=== PATIENT | male | born 1945 | race Asian ===

== ENCOUNTER 2020-01-30 16:14 | Emergency (ER) | payer MEDICARE ==
[~2020-01-30] VITALS: Ht 157.5 cm; Wt 63.6 kg
[2020-01-30] MEDS ORDERED: LOSA25TA21 PO (16:27)
[2020-01-30] MEDS ORDERED: ATOR10TA84 PO (16:27)
[2020-01-30] MEDS ORDERED: ALLO-44 PO (16:27)
[2020-01-30] MEDS ORDERED: AMLO-257 PO (16:27)
[2020-01-30] MEDS ORDERED: HYDR10TA31 PO (16:27)
[2020-01-30] MEDS ORDERED: METF-960 PO (16:27)
[2020-01-30 17:44] LABS: BASOPHILS % (AUTO) 0.4 % (0.0-2.0); EOSINOPHILS % (AUTO) 0.9 % (1.0-6.0); HEMATOCRIT 39.5 % (41-53); HEMOGLOBIN 13.4 g/dL (13.5-17.5); LYMPHOCYTES % (AUTO) 26.5 % (22.0-44.0); MEAN CORPUSCULAR HEMOGLOBIN 31.3 pg (26.0-34.0); MEAN CORPUSCULAR HGB CONC 33.9 G/dL (31.0-37.0); MEAN CORPUSCULAR VOLUME 92 fL (80-100); MONOCYTES # (AUTO) 0.4 K/uL (0.1-1.0); MONOCYTES % (AUTO) 9.8 % (2.0-9.0); NEUTROPHILS # (AUTO) 2.4 K/uL (1.8-7.7); NEUTROPHILS % (AUTO) 62.4 % (40.0-70.0); PLATELET COUNT (AUTO) 235 K/uL (150-450); RED BLOOD CELL COUNT(AUTO) 4.28 MIL/uL (4.50-5.90); RED CELL DISTRIBUTION WIDTH 14.9 % (11.5-14.5)
[2020-01-30 17:48] LABS: ANION GAP 12 mmol/L (8-16); CALCIUM, TOTAL 9.5 mg/dL (8.8-10.5); CARBON DIOXIDE 21 mmol/L (22-29); CHLORIDE 101 mmol/L (98-107); CREATININE 1.14 mg/dL (0.60-1.30); GLOMERULAR FILTR. RATE CALC > 60 mL/min (>60); GLUCOSE,RANDOM 146 mg/dL (70-110); POTASSIUM 4.4 mmol/L (3.5-5.1); SODIUM SERUM 134 mmol/L (136-145); UREA NITROGEN, BLOOD 23 mg/dL (7-18)
[2020-01-30] MEDS ORDERED: ACETAMINOPHEN 325 MG TABLET PO ONE (18:00)
[2020-01-30 18:13] LABS: ALANINE AMINOTRANSFERASE 60 U/L (12-78); ALBUMIN 4.3 g/dL (3.4-5.0); ALKALINE PHOSPHATASE 51 U/L (46-116); ASPARTATE AMINOTRANSFERASE 31 U/L (15-37); BILIRUBIN,TOTAL 0.7 mg/dL (0.1-1.0); CREATINE KINASE, TOTAL ONLY 491 U/L (39-308); TOTAL PROTEIN, SERUM 7.6 g/dL (6.4-8.2)
[2020-01-30 18:17] LABS: B-TYPE NATRIURETIC PEPTIDE 28 pg/mL (0-100)
[2020-01-30] MEDS ORDERED: AmLODIPine BESYLATE 5 MG TABLET PO ONE (18:45)
[2020-01-30] MEDS ORDERED: CloNIDine HCL 0.2 MG TABLET PO ONE (19:30)
[2020-01-30] MEDS ORDERED: KETOROLAC TROMETHAMINE 30 MG/ML VIAL IVP ONE (19:45)
[2020-01-30 20:41] VITALS: BP 157/63
== END 2020-01-30 22:02 | disposition home or self-care (01) ==
LOC: EMS 16:14
DX: I10 Essential (primary) hypertension (principal); R51.9 Headache, unspecified; M10.9 Gout, unspecified; E78.00 Pure hypercholesterolemia, unspecified; E11.9 Type 2 diabetes mellitus without complications; Z87.891 Personal history of nicotine dependence
CPT/HCPCS: 36415; 70450; 71045; 80053; 82550; 82962; 83880; 84484; 85025; 93005; 96374; 99285; J1885

== ENCOUNTER 2020-01-31 21:45 | Emergency (ER) | payer MEDICARE ==
[~2020-01-31] VITALS: Ht 157.5 cm; Wt 63.6 kg
[~2020-01-31 21:45] MED LIST: ALLO-44 PO; AMLO-257 PO; ATOR10TA84 PO; HYDR10TA31 PO; LOSA25TA21 PO; METF-960 PO
[2020-02-01 00:38] LABS: APPEARANCE,URINE CLEAR (CLEAR); BILIRUBIN,URINE NEGATIVE (NEGATIVE); GLUCOSE, URINE (UA) NEGATIVE (NEGATIVE); KETONES,URINE NEGATIVE (NEGATIVE); LEUKOCYTE ESTERASE ,URINE NEGATIVE (NEGATIVE); NITRATE,URINE NEGATIVE (NEGATIVE); OCCULT BLOOD,URINE NEGATIVE (NEGATIVE); PH,URINE 6.5 (5.0-8.0); PROTEIN,URINE TRACE (NEGATIVE); UROBILINOGEN,URINE 0.2 mg/dL (<=1.0)
[2020-02-01 00:50] LABS: BACTERIA,URINE None Seen /HPF (None Seen); RBC,URINE None Seen /HPF (0-2); SQUAMOUS EPITHELIAL CELL,UR Rare /LPF (None Seen); WBC,URINE None Seen /HPF (0-5)
[2020-02-01 01:18] VITALS: BP 176/86
== END 2020-02-01 01:38 | disposition home or self-care (01) ==
LOC: EMS 21:49
DX: I10 Essential (primary) hypertension (principal); R11.2 Nausea with vomiting, unspecified; E11.9 Type 2 diabetes mellitus without complications; E78.00 Pure hypercholesterolemia, unspecified; Z87.891 Personal history of nicotine dependence; Z88.6 Allergy status to analgesic agent; Z79.84 Long term (current) use of oral hypoglycemic drugs

== ENCOUNTER 2020-06-06 18:00 | Emergency (ER) | payer MEDICARE ==
[~2020-06-06] VITALS: Ht 157.5 cm; Wt 63.6 kg
[~2020-06-06 18:00] MED LIST changes: -ALLO-44 PO; +ALLO100T2 PO
[2020-06-06] MEDS ORDERED: SPIR25 PO (18:10)
[2020-06-06] MEDS ORDERED: OLME20TA10 PO (18:10)
[2020-06-06] MEDS ORDERED: AMLO-258 PO (18:10)
[2020-06-06] MEDS ORDERED: METF-960 PO (18:10)
[2020-06-06 18:15] LABS: GLUCOSE,POINT OF CARE 141 MG/DL (70-110)
[2020-06-06 19:00] LABS: BASOPHILS % (AUTO) 0.3 % (0.0-2.0); EOSINOPHILS % (AUTO) 1.9 % (1.0-6.0); HEMATOCRIT 32.5 % (41-53); LYMPHOCYTES # (AUTO) 0.7 K/uL (1.0-4.8); LYMPHOCYTES % (AUTO) 28.2 % (22.0-44.0); MEAN CORPUSCULAR HEMOGLOBIN 30.3 pg (26.0-34.0); MEAN CORPUSCULAR HGB CONC 33.8 G/dL (31.0-37.0); MEAN CORPUSCULAR VOLUME 90 fL (80-100); MONOCYTES # (AUTO) 0.3 K/uL (0.1-1.0); MONOCYTES % (AUTO) 10.4 % (2.0-9.0); NEUTROPHILS # (AUTO) 1.5 K/uL (1.8-7.7); NEUTROPHILS % (AUTO) 59.2 % (40.0-70.0); PLATELET COUNT (AUTO) 156 K/uL (150-450); RED BLOOD CELL COUNT(AUTO) 3.62 MIL/uL (4.50-5.90); RED CELL DISTRIBUTION WIDTH 14.2 % (11.5-14.5)
[2020-06-06 19:11] LABS: ANION GAP 12 mmol/L (8-16); CARBON DIOXIDE 23 mmol/L (22-29); CHLORIDE 95 mmol/L (98-107); CREATININE 1.12 mg/dL (0.60-1.30); GLUCOSE,RANDOM 136 mg/dL (70-110); POTASSIUM 4.1 mmol/L (3.5-5.1); SODIUM SERUM 130 mmol/L (136-145); UREA NITROGEN, BLOOD 18 mg/dL (7-18)
[2020-06-06 19:12] LABS: GLOMERULAR FILTR. RATE CALC > 60 mL/min (>60)
[2020-06-06 19:16] LABS: ALANINE AMINOTRANSFERASE 40 U/L (12-78); ALBUMIN 3.9 g/dL (3.4-5.0); ALKALINE PHOSPHATASE 50 U/L (46-116); ASPARTATE AMINOTRANSFERASE 25 U/L (15-37); BILIRUBIN,TOTAL 0.6 mg/dL (0.1-1.0); TOTAL PROTEIN, SERUM 7.2 g/dL (6.4-8.2)
[2020-06-06] MEDS ORDERED: SODIUM CHLORIDE 0.9% 1,000 ML IV ONE (19:30)
[2020-06-06] MEDS ORDERED: TAMS-13 PO (19:35)
[2020-06-06] MEDS ORDERED: ALLO-45 PO (19:35)
[2020-06-06] MEDS ORDERED: LOSA50TA37 PO (19:35)
[2020-06-06 21:30] VITALS: BP 141/78
== END 2020-06-06 22:21 | disposition home or self-care (01) ==
LOC: EMS 18:00
DX: E87.1 Hypo-osmolality and hyponatremia (principal); E11.9 Type 2 diabetes mellitus without complications; E78.00 Pure hypercholesterolemia, unspecified; I10 Essential (primary) hypertension; Z87.891 Personal history of nicotine dependence; Z88.6 Allergy status to analgesic agent; Z79.84 Long term (current) use of oral hypoglycemic drugs
CPT/HCPCS: 93005; 96360; 99284; 36415-L1; 36415-TC

== ENCOUNTER 2020-09-21 00:48 | Emergency (ER) | payer MEDICARE ==
[~2020-09-21] VITALS: Ht 157.5 cm; Wt 63.6 kg
[~2020-09-21 00:48] MED LIST changes: +ALLO-45 PO; -ALLO100T2 PO; -AMLO-257 PO; +AMLO-258 PO; -HYDR10TA31 PO; -LOSA25TA21 PO; +LOSA50TA37 PO; +OLME20TA10 PO; +SPIR-37 PO; +TAMS-13 PO
[2020-09-21 02:44] LABS: APPEARANCE,URINE CLEAR (CLEAR); BILIRUBIN,URINE NEGATIVE (NEGATIVE); GLUCOSE, URINE (UA) NEGATIVE (NEGATIVE); KETONES,URINE NEGATIVE (NEGATIVE); LEUKOCYTE ESTERASE ,URINE NEGATIVE (NEGATIVE); NITRATE,URINE NEGATIVE (NEGATIVE); OCCULT BLOOD,URINE SMALL (NEGATIVE); PROTEIN,URINE TRACE (NEGATIVE); UROBILINOGEN,URINE 0.2 mg/dL (<=1.0)
[2020-09-21 02:56] LABS: BACTERIA,URINE None Seen /HPF (None Seen); RBC,URINE 0-2 /HPF (0-2); WBC,URINE 0-2 /HPF (0-5)
[2020-09-21 02:57] LABS: TRANSITIONAL EPI CELLS,URINE Rare /LPF (None Seen)
[2020-09-21 03:24] VITALS: BP 121/69
== END 2020-09-21 03:51 | disposition home or self-care (01) ==
LOC: EMS 00:48
DX: R33.9 Retention of urine, unspecified (principal); E11.9 Type 2 diabetes mellitus without complications; E78.00 Pure hypercholesterolemia, unspecified; I10 Essential (primary) hypertension; Z88.6 Allergy status to analgesic agent; Z87.891 Personal history of nicotine dependence; Z79.84 Long term (current) use of oral hypoglycemic drugs
CPT/HCPCS: 51702; 81001; 99283; 99284

== ENCOUNTER 2024-04-21 01:48 | Emergency (ER) | payer MEDICARE ==
[~2024-04-21] VITALS: Ht 157.5 cm; Wt 60.9 kg
[~2024-04-21 01:48] MED LIST changes: +ATOR10TA PO; -ATOR10TA84 PO; +LOSA-382 PO; -LOSA50TA37 PO; +METF-1211 PO; -METF-960 PO; -OLME20TA10 PO; +OLME20TA73 PO; -TAMS-13 PO; +TAMS0.4C94 PO
[2024-04-21 01:58] VITALS: TEMP 97.9
[2024-04-21 02:18] LABS: BASOPHILS % (AUTO) 0.5 % (0.0-2.0); EOSINOPHILS % (AUTO) 4.2 % (1.0-6.0); HEMATOCRIT 29.3 % (41-53); LYMPHOCYTES # (AUTO) 0.8 K/uL (1.0-4.8); LYMPHOCYTES % (AUTO) 40.3 % (22.0-44.0); MEAN CORPUSCULAR HEMOGLOBIN 32.4 pg (26.0-34.0); MEAN CORPUSCULAR HGB CONC 34.2 G/dL (31.0-37.0); MEAN CORPUSCULAR VOLUME 95 fL (80-100); MONOCYTES # (AUTO) 0.2 K/uL (0.1-1.0); MONOCYTES % (AUTO) 7.7 % (2.0-9.0); NEUTROPHILS # (AUTO) 0.9 K/uL (1.8-7.7); NEUTROPHILS % (AUTO) 47.3 % (40.0-70.0); PLATELET COUNT (AUTO) 173 K/uL (150-450); RED CELL DISTRIBUTION WIDTH 16.4 % (11.5-14.5)
[2024-04-21 02:26] LABS: ANION GAP 11 mmol/L (8-16); CALCIUM, TOTAL 8.5 mg/dL (8.8-10.5); CARBON DIOXIDE 23 mmol/L (22-29); CHLORIDE 96 mmol/L (98-107); CREATININE 1.52 mg/dL (0.60-1.30); GLOMERULAR FILTR. RATE CALC 45 mL/min (>60); GLUCOSE,RANDOM 155 mg/dL (70-110); POTASSIUM 4.9 mmol/L (3.5-5.1); SODIUM SERUM 130 mmol/L (136-145); UREA NITROGEN, BLOOD 21 mg/dL (7-18)
[2024-04-21 02:28] LABS: APPEARANCE,URINE CLEAR (CLEAR); BILIRUBIN,URINE NEGATIVE (NEGATIVE); COLOR,URINE LIGHT YELLOW (YELLOW); GLUCOSE, URINE (UA) NEGATIVE (NEGATIVE); KETONES,URINE NEGATIVE (NEGATIVE); LEUKOCYTE ESTERASE ,URINE NEGATIVE (NEGATIVE); NITRATE,URINE NEGATIVE (NEGATIVE); OCCULT BLOOD,URINE NEGATIVE (NEGATIVE); PROTEIN,URINE TRACE mg/dL (NEGATIVE); UROBILINOGEN,URINE <=1.0 mg/dL (<=1.0)
[2024-04-21 02:35] LABS: ALCOHOL, URINE DRUG SCREEN NEGATIVE (NEGATIVE); AMPHET/METH SCREEN,URINE NEGATIVE (NEGATIVE); BARBITURATE SCREEN, URINE NEGATIVE (NEGATIVE); BENZODIAZEPINES SCREEN,URINE NEGATIVE (NEGATIVE); CANNABINOID SCREEN,URINE NEGATIVE (NEGATIVE); COCAINE SCREEN,URINE NEGATIVE (NEGATIVE); METHADONE SCREEN, URINE NEGATIVE (NEGATIVE); OPIATE SCREEN,URINE NEGATIVE (NEGATIVE); PHENCYCLIDINE SCREEN,URINE NEGATIVE (NEGATIVE)
[2024-04-21 02:36] LABS: ALANINE AMINOTRANSFERASE 25 U/L (12-78); ALBUMIN 3.7 g/dL (3.4-5.0); ALKALINE PHOSPHATASE 59 U/L (46-116); ASPARTATE AMINOTRANSFERASE 25 U/L (15-37); BILIRUBIN,TOTAL 0.8 mg/dL (0.1-1.0); TROPONIN I-HIGH SENSITIVITY 20 ng/L (<76)
[2024-04-21 02:42] LABS: B-TYPE NATRIURETIC PEPTIDE 66 pg/mL (0-100)
[2024-04-21 04:00] VITALS: BP 140/58; PULSE 68; RESP 16; O2SAT 98
[2024-04-21] MEDS ORDERED: TRAZ-252 PO (04:04)
== END 2024-04-21 04:16 | disposition home or self-care (01) ==
LOC: EMS 01:48
DX: R00.2 Palpitations (principal); G47.00 Insomnia, unspecified; E11.9 Type 2 diabetes mellitus without complications; I10 Essential (primary) hypertension; E78.00 Pure hypercholesterolemia, unspecified; Z88.6 Allergy status to analgesic agent; Z79.84 Long term (current) use of oral hypoglycemic drugs; Z79.899 Other long term (current) drug therapy
CPT/HCPCS: 71045; 80048; 80076; 80307; 81003; 83880; 84484; 85025; 93005; 99285; 36415-L1; 36415-TC

== ENCOUNTER 2024-07-18 04:00 | Emergency (ER) | payer MEDICARE ==
[~2024-07-18] VITALS: Ht 157.5 cm; Wt 65.0 kg
[~2024-07-18 04:00] MED LIST changes: +TRAZ-252 PO
[2024-07-18 04:56] LABS: BASOPHILS % (AUTO) 0.2 % (0.0-2.0); EOSINOPHILS % (AUTO) 4.2 % (1.0-6.0); HEMATOCRIT 30.9 % (41-53); HEMOGLOBIN 10.6 g/dL (13.5-17.5); LYMPHOCYTES # (AUTO) 0.9 K/uL (1.0-4.8); LYMPHOCYTES % (AUTO) 39.3 % (22.0-44.0); MEAN CORPUSCULAR HEMOGLOBIN 31.9 pg (26.0-34.0); MEAN CORPUSCULAR HGB CONC 34.5 G/dL (31.0-37.0); MEAN CORPUSCULAR VOLUME 93 fL (80-100); MONOCYTES # (AUTO) 0.1 K/uL (0.1-1.0); MONOCYTES % (AUTO) 5.6 % (2.0-9.0); NEUTROPHILS # (AUTO) 1.2 K/uL (1.8-7.7); NEUTROPHILS % (AUTO) 50.7 % (40.0-70.0); PLATELET COUNT (AUTO) 182 K/uL (150-450); RED BLOOD CELL COUNT(AUTO) 3.34 MIL/uL (4.50-5.90); RED CELL DISTRIBUTION WIDTH 15.3 % (11.5-14.5); WHITE BLOOD COUNT (AUTO) 2.3 K/uL (4.5-11.0)
[2024-07-18 04:57] LABS: COVID AG,FIA SOURCE NASAL SWAB
[2024-07-18] MEDS: LORazepam 1 MG TABLET PO ONE (05:01)
[2024-07-18 05:02] LABS: CALCIUM, TOTAL 7.9 mg/dL (8.8-10.5); CREATININE 1.43 mg/dL (0.60-1.30); POTASSIUM 4.4 mmol/L (3.5-5.1)
[2024-07-18 05:14] LABS: SARS-COV2 (COVID) ANTIGEN,FIA Negative (Negative)
[2024-07-18] MEDS ORDERED: LORazepam 2 MG TABLET PO PRN (05:30)
[2024-07-18] MEDS ORDERED: haloperidoL 5 MG TABLET PO PRN (05:30)
[2024-07-18] MEDS ORDERED: ZOLPIDEM TARTRATE 10 MG TABLET PO PRN (05:30)
[2024-07-18 07:25] VITALS: BP 172/56; PULSE 69; RESP 16; TEMP 98.3; O2SAT 99
== END 2024-07-18 09:33 | disposition short-term general hospital (02) ==
LOC: EMS 05:56 → CANBEDREQ 09:00 → EMS 09:33
DX: F32.9 Major depressive disorder, single episode, unspecified (principal); E87.1 Hypo-osmolality and hyponatremia; E11.9 Type 2 diabetes mellitus without complications; I10 Essential (primary) hypertension; E78.00 Pure hypercholesterolemia, unspecified; R45.851 Suicidal ideations; E78.5 Hyperlipidemia, unspecified; Z88.6 Allergy status to analgesic agent; Z79.84 Long term (current) use of oral hypoglycemic drugs; Z79.899 Other long term (current) drug therapy; Z20.822 Contact with and (suspected) exposure to COVID-19
CPT/HCPCS: 99285; 87426; 80048; 83930; 85025; 36415; 93005; G0480

== ENCOUNTER 2025-02-08 01:59 | Emergency (ER) | payer MEDICARE ==
[~2025-02-08] VITALS: Ht 157.5 cm; Wt 56.8 kg
[2025-02-08 02:03] VITALS: TEMP 97.9
[2025-02-08 02:53] LABS: PLATELET COUNT (AUTO) 146 K/uL (150-450); RED BLOOD CELL COUNT(AUTO) 3.31 MIL/uL (4.50-5.90); RED CELL DISTRIBUTION WIDTH 15.2 % (11.5-14.5); WHITE BLOOD COUNT (AUTO) 1.7 K/uL (4.5-11.0)
[2025-02-08 03:05] LABS: CALCIUM, TOTAL 8.3 mg/dL (8.8-10.5); CREATININE 1.13 mg/dL (0.60-1.30); GLOMERULAR FILTR. RATE CALC > 60 mL/min (>60); GLUCOSE,RANDOM 150 mg/dL (70-110); SODIUM SERUM 128 mmol/L (136-145); UREA NITROGEN, BLOOD 17 mg/dL (7-18)
[2025-02-08 03:13] LABS: TROPONIN I-HIGH SENSITIVITY 26 ng/L (<76)
[2025-02-08] MEDS: ACETAMINOPHEN 325 MG TABLET PO ONE (04:21)
[2025-02-08] MEDS: SODIUM CHLORIDE 0.9% 1,000 ML IV ONE (05:02)
[2025-02-08 05:08] VITALS: BP 123/48; PULSE 57; RESP 22; O2SAT 98
[2025-02-08] MEDS ORDERED: ALPR-705 PO (05:21)
[2025-02-08 05:53] LABS: APPEARANCE,URINE CLEAR (CLEAR); GLUCOSE, URINE (UA) NEGATIVE (NEGATIVE); LEUKOCYTE ESTERASE ,URINE NEGATIVE (NEGATIVE); NITRATE,URINE NEGATIVE (NEGATIVE); OCCULT BLOOD,URINE NEGATIVE (NEGATIVE); SPECIFIC GRAVITIY, URINE 1.008 (1.003-1.030)
== END 2025-02-08 06:15 | disposition home or self-care (01) ==
LOC: EMS 02:00
DX: F41.9 Anxiety disorder, unspecified (principal); I10 Essential (primary) hypertension; E11.9 Type 2 diabetes mellitus without complications; E78.00 Pure hypercholesterolemia, unspecified; R00.2 Palpitations; M10.9 Gout, unspecified; Z87.891 Personal history of nicotine dependence; Z79.899 Other long term (current) drug therapy; Z88.6 Allergy status to analgesic agent
CPT/HCPCS: 71045; 80048; 81003; 84484; 85025; 93005; 96360; 99285; 36415-L1; 36415-TC